=== PATIENT | female | born 1960 | race Caucasian/White ===

== ENCOUNTER → 2018-09-09 | Outpatient (CLI) | payer OTHER ==
--- NOTE | 2018-09-14 02:43 | Polysomnography ---
DATE OF STUDY: 09/09/2018 REFERRING PHYSICIAN: Sreedhar Miller MD STUDY: INTERPRETATION OF HOME SLEEP STUDY (HST). INTERPRETING PHYSICIAN: Sreedhar Miller MD. IMPRESSION: 1. Severe obstructive sleep apnea with the apnea-hypopnea index (AHI) of 32.9. 2. No limb movements were observed. RECOMMENDATIONS: 1. Initiate titration for continuous positive airway pressure therapy (CPAP). 2. ENT evaluation to consider surgical options to correct sleep-disordered breathing. 3. Avoid consumption of alcohol or sedatives before bedtime. 4. Avoid caffeine and exercise within 3 to 4 hours prior to bedtime. 5. Weight reduction to ideal body weight. 6. Advise patient that excessive daytime sleepiness could pose a danger to the patient and others while driving or operating heavy machinery, and to use caution until symptoms are treated and improved. 7. The patient to follow up with physician to discuss results of study. Sreedhar Miller MD JKY/[id number] /[id number] MTDD
== END ==
LOC: SLEEP 09-08 13:12
PROVIDERS: ATTEND Otolaryngology
DX: G47.33 Obstructive sleep apnea (adult) (pediatric) (principal); R00.0 Tachycardia, unspecified
CPT/HCPCS: 95806